=== PATIENT | female | born 1975 ===

== ENCOUNTER 2021-01-19 16:43 | Observation (INO) | payer MEDICAID ==
[2021-01-20] MEDS ORDERED: ACETAMINOPHEN 325 MG TAB PO PRN (09:00)
[2021-01-20 09:42] LABS: Basophils # (Auto) 0.1 K/mm3 (0.0-0.1); Basophils % (Auto) 0.8 % (0.0-1.8); Eosinophils % (Auto) 0.5 % (0.0-4.3); Hematocrit 35.8 % (30.3-42.9); Hemoglobin 11.4 gm/dl (10.1-14.3); Lymphocytes % (Auto) 22.7 % (13.4-35.0); Mean Corpuscular HGB Conc 32 % (30-34); Mean Corpuscular Volume 86 fl (79-97); Monocytes # (Auto) 0.6 K/mm3 (0.0-0.8); Platelet Count 329 K/mm3 (140-440); Red Blood Count 4.16 M/mm3 (3.65-5.03); Red Cell Distribution Width 16.9 % (13.2-15.2)
[2021-01-20 09:52] LABS: INR 0.98 (0.87-1.13)
[2021-01-20] MEDS ORDERED: ENOXAPARIN 30 MG/0.3 ML INJ SUB-Q SCH (10:00)
[2021-01-20 10:20] LABS: Blood Urea Nitrogen 8 mg/dL (7-17); Calcium 9.2 mg/dL (8.4-10.2); Hemolysis Index 9
[2021-01-20 10:28] LABS: BUN/Creatinine Ratio 11
[2021-01-20] MEDS: CLOPIDOGREL 75 MG TAB PO SCH (10:55)
[2021-01-20] MEDS ORDERED: SODIUM CHLORIDE 0.9% 500 ML 500 ML IV SCH (11:00)
[2021-01-20] MEDS ORDERED: HEPARIN 10,000 UNITS/10 ML VIAL ONE ×2 (12:20→15:13)
[2021-01-20] MEDS ORDERED: HEPARIN/NS 5000 UNIT/500ML 1,000 ML IR ONE (12:20)
[2021-01-20] MEDS ORDERED: MIDAZOLAM 2 MG/2 ML INJ ONE ×2 (12:20→13:19)
[2021-01-20] MEDS ORDERED: fentaNYL 100 MCG/2 ML INJ ONE ×2 (12:20→13:52)
[2021-01-20] MEDS ORDERED: VERAPAMIL 5 MG/2 ML INJ ONE (12:21)
[2021-01-20] MEDS ORDERED: LIDOCAINE (2%) 20 MG/1 ML VIAL 20 ML MDV INFILTRATI ONE ×3 (12:21→13:30)
[2021-01-20] MEDS ORDERED: NITROGLYCERIN SYRINGE 3 ML ONE (12:21)
[2021-01-20] MEDS ORDERED: NS IV ONE (12:23)
[2021-01-20] MEDS ORDERED: EPINEPHrine 1 MG/10 ML SYRINGE ONE (12:23)
[2021-01-20] MEDS ORDERED: ATROPINE 0.1% (1 MG/10 ML) CARDIAC SYRINGE ONE (12:23)
[2021-01-20] MEDS ORDERED: PHENYLEPHRINE/NS 1,000 MCG/10 ML SYRINGE (OR USE) IV ONE (12:23)
[2021-01-20] MEDS ORDERED: TIROFIBAN IV ONE (12:23)
[2021-01-20] MEDS ORDERED: fentaNYL 100 MCG/2 ML INJ IV ONE ×3 (13:09→13:35)
[2021-01-20] MEDS ORDERED: MIDAZOLAM 2 MG/2 ML INJ IV ONE ×2 (13:09→13:15)
[2021-01-20] MEDS ORDERED: HEPARIN 10,000 UNITS/10 ML VIAL ART-SHEATH ONE (13:14)
[2021-01-20] MEDS ORDERED: NITROGLYCERIN 600 MCG/3 ML SYRINGE ART-SHEATH ONE (13:14)
[2021-01-20] MEDS ORDERED: VERAPAMIL 5 MG/2 ML INJ ART-SHEATH ONE (13:14)
[2021-01-20] MEDS ORDERED: HEPARIN/NS 5000 UNIT/500ML 500 ML IR ONE (13:32)
[2021-01-20] MEDS ORDERED: HEPARIN 10,000 UNITS/10 ML VIAL IV ONE (13:38)
[2021-01-20] MEDS ORDERED: NITROGLYCERIN 600 MCG/3 ML SYRINGE INTRA-CORO ONE ×2 (13:42→13:47)
[2021-01-20] MEDS ORDERED: CLOPIDOGREL 75 MG TAB ONE (14:14)
[2021-01-20] MEDS ORDERED: CLOPIDOGREL 75 MG TAB PO ONE (14:17)
--- NOTE | 2021-01-20 14:19 | Short Stay Summary ---
Short Stay Documentation Date of service: 01/20/21 Narrative H&P: Patient is a 45-year-old woman who was hospitalized [facility], with unstable angina. She underwent cardiac catheterization that showed a 75 to 80% ulcerated plaque located in the mid LAD. She is transferred to [facility] to undergo percutaneous coronary intervention of the mid LAD. On presentation, the patient was taken to the cardiac catheterization lab, where we successfully implanted serial, 3.5 to 4.0 mm drug-eluting stents covering the entire lesional segment, with an excellent angiographic result and 0 residual stenosis. KEVIN-3 flow was maintained in the LAD. There were no complications. The patient will be observed overnight post intervention, with anticipated discharge tomorrow on guideline directed medical therapy including dual oral antiplatelet therapy with clopidogrel. - History Past Medical History: hypertension - Allergies and Medications Current Medications: Allergies aspirin Allergy (Verified 01/19/21 16:58) Unknown Active Medications Acetaminophen (Acetaminophen 325 Mg Tab) 650 mg PO Q4H PRN PRN Reason: Pain MILD(1-3)/Fever >100.5/LEON Hydrocodone Bitart/Acetaminophen (Hydrocodone/Acetaminophen 5-325 Mg Tab) 1 each PO Q6H PRN PRN Reason: Pain, Moderate (4-6) Aspirin (Aspirin 81 Mg Tab Chew) 81 mg PO QDAY ELISA Atorvastatin Calcium (Atorvastatin 40 Mg Tab) 40 mg PO QHS ELISA Clopidogrel Bisulfate (Clopidogrel 75 Mg Tab) 75 mg PO QDAY [facility] Last Admin: 01/20/21 10:55 Dose: 75 mg Documented by: Enoxaparin Sodium (Enoxaparin 40 Mg/0.4 Ml Inj) 40 mg SUB-Q QDAY@1000 ELISA Sodium Chloride (Nacl 0.9% 500 Ml) 500 mls @ 50 mls/hr IV DIRECT [facility] Last Admin: 01/20/21 11:16 Dose: 50 mls/hr Documented by: Sodium Chloride (Nacl 0.9% 1000 Ml) 1,000 mls @ 100 mls/hr IV DIRECT [facility] Stop: 01/20/21 22:14 Isosorbide Mononitrate (Isosorbide Mononitrate Er 30 Mg Tab) 30 mg PO QDAY ELISA Metoprolol Tartrate (Metoprolol Tartrate 50 Mg Tab) 50 mg PO BID ELISA Ondansetron HCl (Ondansetron 4 Mg/2 Ml Inj) 4 mg IV Q8H PRN PRN Reason: Nausea And Vomiting Sodium Chloride (Sodium Chloride 0.9% 10 Ml Flush Syringe) 10 ml IV BID ELISA Sodium Chloride (Sodium Chloride 0.9% 10 Ml Flush Syringe) 10 ml IV PRN PRN PRN Reason: LINE FLUSH Zolpidem Tartrate (Zolpidem 5 Mg Tab) 5 mg PO QHS PRN PRN Reason: Sleep - Physical exam General appearance: no acute distress Integumentary: no rash HEENT: Atraumatic Lungs: Clear to auscultation Breasts: deferred Heart: Regular rate, No murmurs Gastrointestinal: normoactive bowel sounds Female Genitourinary: deferred Rectal Exam: deferred Extremities: No edema Neurological: Normal gait, Normal speech - Brief post op/procedure progress note Date of procedure: 01/20/21 Pre-op diagnosis: Coronary artery disease Post-op diagnosis: same Procedure: Coronary angioplasty and stenting of the mid LAD, see dictated report for details. Anesthesia: MAC Surgeon: MARTHA SNOW Estimated blood loss: minimal Pathology: none Condition: stable - Hospital course Hospital course: Status post successful coronary intervention to the mid LAD, excellent angiographic result, no complications. - Disposition Disposition: DC-01 TO HOME OR SELFCARE Short Stay Discharge Plan Follow up with: PRIMARY CARE, [Primary Care Provider] - 7 Days
--- NOTE | 2021-01-20 14:49 | Cardiac Catherization Report ---
CARDIAC CATHETERIZATION REPORT REASON FOR PROCEDURE: The patient is a 45-year-old woman who was managed at [facility] for unstable angina. A cardiac catheterization showed an ulcerated plaque with a spontaneous dissection of the mid LAD. She was transferred to [facility] to undergo coronary intervention. PROCEDURES: 1. Coronary angioplasty and stenting of the mid left anterior descending artery. 2. Sedation time, began 1309, end 1350. I was present for the entire procedure and supervised the moderate sedation protocol. The patient was prepped and draped in a sterile fashion after informed consent. An initial attempt at procedure access via the radial approach was successful, but despite multiple attempts at transitioning from the brachiocephalic to the ascending aorta, with the patient taking deep inspirations, a catheter could not be directed into the ascending from the brachiocephalic. We then turned our attention to the right femoral artery, which was entered using the Seldinger technique followed by placement of a 6-Welsh sheath. We advanced a #3.0 XB guiding catheter to the left coronary ostium. Pre-intervention angiograms were taken. A 0.014 inch [employer] 50 guidewire was then directed into the LAD, across the lesion segment. Following wire placement, in a primary stenting maneuver, we deployed serial, 3.5-4.0 mm drug-eluting stents covering the entire lesion segment. The stents were deployed to optimal pressures. Following stenting, there was an excellent angiographic result, 0 residual stenosis and KEVIN 3 flow maintained down the LAD. Procedure was well tolerated and there were no complications. The catheters and the wires were removed, sheath removed and the femoral arteriotomy covered with an Angio-Seal device and the radial site covered using a TR band. The patient was returned to the postprocedure unit in stable condition. There were no complications. CONCLUSION: Successful angioplasty and stenting of the mid left anterior descending artery, excellent angiographic result following deployment of 3.5-4.0 mm drug-eluting stents. Patient has an expressed allergy to aspirin, we will instead treat her with Clopidogrel at 75 mg twice daily. JOB# [id number] NARA/GRAHAM MCKAY
[2021-01-20] MEDS ORDERED: SODIUM CHLORIDE 0.9% 1000 ML 1,000 ML IV SCH (15:00)
[2021-01-20] MEDS: HYDROcodone/ACETAMINOPHEN 5-325 MG TAB PO PRN ×3 (15:29→20:15)
[2021-01-20] MEDS: METOPROLOL TARTRATE 50 MG TAB PO SCH ×3 (15:40→22:36)
[2021-01-20] MEDS: ENOXAPARIN 40 MG/0.4 ML INJ SUB-Q SCH (16:34)
[2021-01-20] MEDS ORDERED: ZOLPIDEM 5 MG TAB PO PRN (22:00)
[2021-01-20] MEDS ORDERED: MORPHINE 2 MG/1 ML INJ IM ONE (22:13)
[2021-01-20] MEDS: ONDANSETRON 4 MG/2 ML INJ IV PRN (23:47)
[2021-01-21] MEDS: HYDROcodone/ACETAMINOPHEN 5-325 MG TAB PO PRN ×2 (03:34→09:51)
[2021-01-21 05:18] LABS: Basophils # (Auto) 0.1 K/mm3 (0.0-0.1); Basophils % (Auto) 0.5 % (0.0-1.8); Eosinophils % (Auto) 0.2 % (0.0-4.3); Hematocrit 31.1 % (30.3-42.9); Lymphocytes # (Auto) 1.5 K/mm3 (1.2-5.4); Lymphocytes % (Auto) 12.9 % (13.4-35.0); Mean Corpuscular HGB Conc 32 % (30-34); Mean Corpuscular Volume 84 fl (79-97); Monocytes # (Auto) 0.7 K/mm3 (0.0-0.8); Monocytes % (Auto) 5.9 % (0.0-7.3); Platelet Count 332 K/mm3 (140-440); Red Blood Count 3.72 M/mm3 (3.65-5.03); Red Cell Distribution Width 16.4 % (13.2-15.2)
[2021-01-21 05:37] LABS: BUN/Creatinine Ratio 10; Blood Urea Nitrogen 5 mg/dL (7-17); Calcium 8.6 mg/dL (8.4-10.2); Hemolysis Index 18
[2021-01-21 06:11] LABS: HDL Cholesterol 36 mg/dL (40-59); LDL Cholesterol,Direct 87 mg/dL (50-130)
--- NOTE | 2021-01-21 07:46 | XRay Report ---
CHEST 1 VIEW INDICATION: post pci. COMPARISON: None FINDINGS: Support devices: None. Heart: Within normal limits. Lungs/Pleura: No acute air space or interstitial disease. No pneumothorax. Additional findings: There is a very large hiatal hernia or thoracic stomach posterior to the heart. IMPRESSION: No acute findings. Very large hiatal hernia. Signer Name: Tadeo Dennison Jr, MD Signed: 01/21/2021 7:42 AM Workstation Name: [id number]
[2021-01-21] MEDS: ONDANSETRON 4 MG/2 ML INJ IV PRN (09:52)
[2021-01-21] MEDS: ENOXAPARIN 40 MG/0.4 ML INJ SUB-Q SCH (09:55)
[2021-01-21 09:56] VITALS: BP 124/80
[2021-01-21] MEDS: METOPROLOL TARTRATE 50 MG TAB PO SCH (09:56)
[2021-01-21] MEDS: CLOPIDOGREL 75 MG TAB PO SCH (09:56)
[2021-01-21] MEDS ORDERED: ASPIRIN 81 MG TAB CHEW PO SCH (10:00)
[2021-01-21] MEDS: traMADol 50 MG TAB PO PRN ×2 (10:55→15:51)
--- NOTE | 2021-01-21 13:07 | Progress Note ---
Assessment and Plan - Patient Problems (1) Coronary angioplasty status Current Visit: Yes Status: Acute Plan to address problem: Patient is status post coronary intervention to the left mid LAD, with implantation of 3.5 mm drug-eluting stents. We will continue optimal medical therapy for coronary artery disease. Due to her expressed prior allergy to aspirin, we will use monotherapy with Plavix at 75 mg twice daily. We will also at this time resume her warfarin therapy, for her history of venous thromboembolism. With regards to current right leg pain we will order a right leg arterial and venous Doppler, and if pain resolves, anticipate discharge later today. Subjective Date of service: 01/21/21 Interval history: Patient has no chest pain or shortness of breath. Her major complaint today is right leg and knee pain and cramps. Notably, there is no swelling, and the right groin cath site is well-healed, no significant hematoma, normal femoral, popliteal and dorsalis pedis pulses on the right leg. We also informed of nonspecific prior allergy to aspirin. She also states that she is chronically on warfarin for previous history of pulmonary embolism. Currently she is on Plavix antiplatelet following her stent procedure. Objective Vital Signs Temp Pulse Resp BP Pulse Ox 01/21/21 10:00 97 01/21/21 09:56 89 124/80 01/21/21 08:13 98.4 F 89 20 124/80 99 01/21/21 04:16 98.7 F 82 16 109/59 100 01/21/21 01:06 20 97 01/21/21 00:00 84 01/20/21 22:52 98.6 F 133 H 16 139/86 97 01/20/21 22:36 130 H 133/95 01/20/21 19:30 98.5 F 90 17 133/95 95 01/20/21 17:46 98.5 F 01/20/21 16:48 84 01/20/21 16:34 138/86 01/20/21 16:15 69 18 142/88 99 01/20/21 15:30 69 19 142/89 97 01/20/21 15:00 68 19 140/86 97 01/20/21 14:45 64 18 138/88 97 01/20/21 14:35 98.4 F 66 18 143/88 97 - Physical Examination General: No Apparent Distress HEENT: Positive: PERRL Neck: Positive: neck supple Cardiac: Positive: Reg Rate and Rhythm Lungs: Positive: Decreased Breath Sounds Neuro: Positive: Grossly Intact Abdomen: Positive: Soft Skin: Positive: Clear Gait: Normal Gait Extremities: Present: normal - Labs and Meds Lipids 01/21/21 Range/Units 04:51 Triglycerides 106 (2-149) mg/dL Cholesterol 137 (50-199) mg/dL HDL Cholesterol 36 L (40-59) mg/dL Cholesterol/HDL Ratio 3.80 % CBC 01/21/21 Range/Units 04:51 WBC 12.0 H (4.5-11.0) K/mm3 RBC 3.72 (3.65-5.03) M/mm3 Hgb 10.0 L (10.1-14.3) gm/dl Hct 31.1 (30.3-42.9) % Plt Count 332 (140-440) K/mm3 Lymph # (Auto) 1.5 (1.2-5.4) K/mm3 [place] # (Auto) 0.7 (0.0-0.8) K/mm3 Eos # (Auto) 0.0 (0.0-0.4) K/mm3 Baso # (Auto) 0.1 (0.0-0.1) K/mm3 Comprehensive Metabolic Panel 01/21/21 Range/Units 04:51 Sodium 138 (137-145) mmol/L Potassium 4.0 (3.6-5.0) mmol/L Chloride 105.2 (98-107) mmol/L Carbon Dioxide 23 (22-30) mmol/L BUN 5 L (7-17) mg/dL Creatinine 0.5 L (0.6-1.2) mg/dL Glucose 98 (65-100) mg/dL Calcium 8.6 (8.4-10.2) mg/dL
--- NOTE | 2021-01-21 15:11 | Vascular Lab Report ---
DUPLEX DOPPLER LOWER EXTREMITY ARTERIAL, BILATERAL INDICATION: right lower extremity pain post cath. TECHNIQUE: Arterial duplex examination of both lower extremities performed using B-mode, color flow and spectral Doppler assessment. FINDINGS: RIGHT: Common Femoral Artery: PSV 90 cm/sec. Triphasic waveform. Proximal SFA: PSV 81 cm/sec. Triphasic waveform. Mid SFA: PSV 77 cm/sec. Triphasic waveform. Distal SFA: PSV 78 cm/sec. Triphasic waveform. Popliteal artery: PSV 70 cm/sec. Triphasic waveform. Posterior tibial artery: PSV 74 cm/sec. Triphasic waveform. Dorsalis Pedis Artery: PSV 20 cm/sec. Biphasic waveform. IMPRESSION: 1. No significant lower extremity peripheral artery disease. Ankle-Brachial Index (RICHAR): * Calcified arteries > 1.4 * Normal = 0.9-1.4 * Mild PAD = 0.7-0.89 * Moderate PAD = 0.51-0.69 * Severe PAD < 0.5 Doppler Waveform: * Triphasic is normal. * Biphasic is abnormal if clear transition from triphasic signal along vascular tree. * Monophasic is abnormal. Signer Name: Jus Moran MD Signed: 01/21/2021 3:07 PM Workstation Name: [id number]
--- NOTE | 2021-01-21 15:58 | Short Stay Summary ---
Short Stay Documentation Date of service: 01/21/21 - History H&P: obtained from office Past Medical History: hypertension - Allergies and Medications Current Medications: Allergies aspirin Allergy (Verified 01/19/21 16:58) Unknown Active Medications Acetaminophen (Acetaminophen 325 Mg Tab) 650 mg PO Q4H PRN PRN Reason: Pain MILD(1-3)/Fever >100.5/LEON Last Admin: 01/20/21 17:56 Dose: 650 mg Documented by: Atorvastatin Calcium (Atorvastatin 40 Mg Tab) 40 mg PO QHS [facility] Last Admin: 01/20/21 22:36 Dose: 40 mg Documented by: Clopidogrel Bisulfate (Clopidogrel 75 Mg Tab) 75 mg PO BID [facility] Enoxaparin Sodium (Enoxaparin 40 Mg/0.4 Ml Inj) 40 mg SUB-Q QDAY@1000 [facility] Last Admin: 01/21/21 09:55 Dose: 40 mg Documented by: Sodium Chloride (Nacl 0.9% 500 Ml) 500 mls @ 50 mls/hr IV DIRECT [facility] Last Admin: 01/20/21 11:16 Dose: 50 mls/hr Documented by: Isosorbide Mononitrate (Isosorbide Mononitrate Er 30 Mg Tab) 30 mg PO QDAY [facility] Last Admin: 01/21/21 09:56 Dose: 30 mg Documented by: Metoprolol Tartrate (Metoprolol Tartrate 50 Mg Tab) 50 mg PO BID [facility] Last Admin: 01/21/21 09:56 Dose: 50 mg Documented by: Ondansetron HCl (Ondansetron 4 Mg/2 Ml Inj) 4 mg IV Q8H PRN PRN Reason: Nausea And Vomiting Last Admin: 01/21/21 09:52 Dose: 4 mg Documented by: Sodium Chloride (Sodium Chloride 0.9% 10 Ml Flush Syringe) 10 ml IV BID [facility] Last Admin: 01/21/21 09:54 Dose: 10 ml Documented by: Sodium Chloride (Sodium Chloride 0.9% 10 Ml Flush Syringe) 10 ml IV PRN PRN PRN Reason: LINE FLUSH Tramadol HCl (Tramadol 50 Mg Tab) 50 mg PO Q4H PRN PRN Reason: Pain, Moderate (4-6) Last Admin: 01/21/21 15:51 Dose: 50 mg Documented by: Warfarin Sodium (Warfarin 10 Mg Tab) 10 mg PO DAILY@1700 ELISA; Protocol Zolpidem Tartrate (Zolpidem 5 Mg Tab) 5 mg PO QHS PRN PRN Reason: Sleep Last Admin: 01/20/21 22:37 Dose: 5 mg Documented by: - Physical exam General appearance: no acute distress HEENT: PERRLA Lungs: Clear to auscultation Breasts: deferred Heart: Regular rate, No murmurs Extremities: No edema - Hospital course Hospital course: Status post coronary intervention to the left mid LAD, with implantation of 3.5 mm drug-eluting stents. Patient has no chest pain or shortness of breath. Her major complaint today is right leg and knee pain and cramps. Notably, there is no swelling, and the right groin cath site is well-healed, no significant hematoma, normal femoral, popliteal and dorsalis pedis pulses on the right leg. LE arterial doppler done reports no significant stenosis. We will continue optimal medical therapy for coronary artery disease. Due to her expressed prior allergy to aspirin, we will use monotherapy with Plavix at 75 mg twice daily. We will also at this time resume her warfarin therapy, for her history of venous thromboembolism. Stable for discharge home today with outpatient follow up in 5-7 days. - Disposition Disposition: DC-01 TO HOME OR SELFCARE Short Stay Discharge Plan Activity: advance as tolerated Weight Bearing Status: Partial Weight Bearing Diet: low fat, low cholesterol, low salt Wound: open to air, keep clean and dry Follow up with: PRIMARY CARE, [Primary Care Provider] - 7 Days Forms: AMA Form Prescriptions: traMADoL [Ultram 50 MG tab] 50 mg PO Q4H PRN #40 tablet PRN Reason: Pain, Moderate (4-6)
[2021-01-21] MEDS ORDERED: WARFARIN 5 MG TAB PO SCH (17:00)
[2021-01-21] MEDS ORDERED: WARFARIN 10 MG TAB PO SCH (17:00)
[2021-01-21] MEDS ORDERED: CLOPIDOGREL 75 MG TAB PO SCH (22:00)
== END 2021-01-21 19:06 | disposition home or self-care (01) ==
LOC: 4A 16:43 → UNDOADMOB 16:43 → 4A 01-20 08:00
PROVIDERS: ADMIT Internal Medicine Cardiovascular Disease; ATTEND Internal Medicine Cardiovascular Disease
DX: I25.10 Atherosclerotic heart disease of native coronary artery without angina pectoris (principal); Z79.82 Long term (current) use of aspirin; Z79.01 Long term (current) use of anticoagulants
CPT/HCPCS: 36415; 71045; 80048; 80061; 82962; 84484; 85025; 85347; 85610; 93926; 96361; 96372; 96374; 96376; A9270; C1760; C1769; C1874; C1887; C1894; C9600; G0378; G0379; J1644; J1650; J2250; J2270; J2405; J3010; J7040; 92928; J0171; J0461; J2370; J3246; Q9967